=== PATIENT | female | born 1990 | race Caucasian/White ===

== ENCOUNTER 2022-06-23 12:00 | Outpatient (CLI) | payer BC, SELFPAY ==
--- NOTE | 2022-06-23 12:15 | CRLHL7_ITS ---
For Patients: As a result of the Cures Act, medical imaging exams and procedure reports are released immediately into your electronic medical record. You may view this report before your referring provider. If you have questions, please contact your health care provider. INDICATION: Dating and viability. TECHNIQUE: Ultrasound OB pelvis transabdominal and transvaginal. Real-time ceballos-scale imaging of the pelvis was performed. COMPARISON: None. FINDINGS: There is a monochorionic diamniotic twin intrauterine gestation. Fetus A: The embryo demonstrates a regular cardiac rate measuring 168 beats per minute. The embryo`s crown rump length measurement of 2.9 cm corresponds to a gestational age of 9 weeks, 5 days with a sonographic due date of 01/21/2023. There are no gross abnormalities noted within the embryo at this early state of development. Fetus B: The embryo demonstrates a decreased cardiac rate measuring 88 beats per minute. The embryo`s crown rump length measurement of 2.1 cm corresponds to a gestational age of 8 weeks, 5 days with a sonographic due date of 01/28/2023. There is some suggestion of edema with possible pleural effusions. There is small 2.1 centimeter perigestational hemorrhage. The ovaries are of normal size. There are no suspicious fluid collections noted in the cul-de-sac. IMPRESSION: Monochorionic diamniotic twin intrauterine gestation. Fetus A: Live intrauterine gestation with crown-rump length measuring 2.9 centimeters which corresponds to gestational age of 9 weeks, 5 days and sonographic due date of 01/21/2023. Recommend correlation with clinical dates. There are no gross abnormalities noted within the embryo at this early state of development. Fetus B: Live intrauterine gestation with crown-rump length measuring 2.1 centimeters which corresponds to a gestational age of 8 weeks, 5 days with a sonographic due date of 01/28/2023. There is associated bradycardia and nonspecific edematous appearance and possible pleural effusions of fetus B. Recommend continued strap setter follow-up with short-term ultrasound. Ordering Provider and [employer] are aware of results per senior advisory. Dictated by Nelson Miles MD @ 06/23/2022 3:39:58 PM (Electronically Signed)
== END 2022-06-23 12:01 | disposition home or self-care (01) ==
PROVIDERS: Visit Provider Registered Nurse
DX: Z34.90 Encounter for supervision of normal pregnancy, unspecified, unspecified trimester (principal); O30.031 Twin pregnancy, monochorionic/diamniotic, first trimester; Z3A.09 9 weeks gestation of pregnancy
CPT/HCPCS: 76817; 86592; 86703; 86762; 86787; 86803; 86850; 86900; 86901; 87086; 87340; 87491; 87591

== ENCOUNTER 2022-07-07 09:47 | Outpatient (CLI) | payer BC, SELFPAY ==
--- NOTE | 2022-07-07 09:45 | CRLHL7_ITS ---
For Patients: As a result of the Cures Act, medical imaging exams and procedure reports are released immediately into your electronic medical record. You may view this report before your referring provider. If you have questions, please contact your health care provider. INDICATION: Follow-up on twin . Baby B grossly abnormal on prior ultrasound. COMPARISON: OB ultrasound 06/23/2022. TECHNIQUE: Real-time ceballos-scale imaging of the pelvis was performed. FINDINGS: Sonographic imaging demonstrates a twin intrauterine gestation. Fetus A: No heart tones identified. The embryo`s crown-rump length measurement of 4.4 cm corresponds to a gestational age of 11 weeks 1 day with a sonographic due date of 01/25/2023. Yolk sac not visualized. Fetus B: No heart tones identified. The embryo`s crown-rump length measurement of 2.9 cm corresponds to a gestational age of 9 weeks 5 days with a sonographic due date of 02/04/2023. Yolk sac not visualized. IMPRESSION: 1. Twin intrauterine gestation with absence of heart tones for both fetus A and fetus B compatible with demise. 2. Findings discussed with Maggy Vu at 11:57 a.m. on 07/07/2022. Dictated by Inez Hayward MD @ 07/07/2022 11:34:13 AM (Electronically Signed)
== END 2022-07-07 09:48 | disposition home or self-care (01) ==
LOC: US 09:47
PROVIDERS: Visit Provider Registered Nurse
DX: O30.001 Twin pregnancy, unspecified number of placenta and unspecified number of amniotic sacs, first trimester (principal)
CPT/HCPCS: 76816; J2791

== ENCOUNTER 2022-07-08 09:27 | Day surgery (SDC) | payer BC, SELFPAY ==
[2022-07-08] MEDS: DOXYCYCLINE HYCLATE 200 MG in 0.9 % SODIUM CHLORIDE Mini-bag 100 ML 100 MG IVPB (09:18)
[2022-07-08 09:54] LABS: Hemoglobin* 13.7 gm/dL (12.0-16.0)
[2022-07-08 09:59] LABS: Ur HCG Qualitative* POSITIVE (Negative)
[2022-07-08 10:00] VITALS: BP 119/81; PULSE 67; RESP 14; TEMP 37.5; O2SAT 99
[2022-07-08] MEDS: LACTATED RINGERS 1000 ML 1,000 ML 100 ML IV (10:04)
--- NOTE | 2022-07-08 11:45 | PM.GYNPRPL ---
Procedure Pre-op/Post-op diagnoses: Pre-Op/Post-Op Diagnoses Operation Date: 07/08/22 10:55 <No data on this case meets the specified criteria> Procedure: Procedures Operation Date: 07/08/22 10:55 Ultrasound guided suction dilation and curettage Estimated blood loss (mL): 200 Anesthesia type: MAC Complications: none Specimen: uterine contents Narrative: DILATION AND CURRETAGE PREOPERATIVE DIAGNOSIS: 1. Spontaneous missed of monochorionic diamniotic twins at approximately 11 weeks 6 days gestation POSTOPERATIVE DIAGNOSIS: Same PROCEDURE: 1. EUA 2. Ultrasound-guided suction dilation and curettage SURGEON: Maggy Soto MD DATABASE DEVELOPMENT PROJECT MANAGER: None ANESTHESIA: Monitored anesthesia care and paracervical block FINDINGS: 1. A 12 size mobile anteverted/midline/retroverted uterus, no adnexal masses on EUA 2. Normal external genitalia, normal appearing cervix FLUIDS: 800 cc ESTIMATED BLOOD LOSS: 200 cc URINE OUTPUT: 25 cc COMPLICATIONS: None SPECIMEN: 1. Products of conception sent to pathology and for cytogenetic testing as well PREOPERATIVE ANTIBIOTIC: 1. 200 mg of doxycycline IV INDICATIONS: Damaris is a 32 yo G 1 P 0, with diagnosis of spontaneous missed of monochorionic diamniotic twins at approximately 11 weeks 6 days gestation DESCRIPTION OF PROCEDURE: The patient was taken to the operating room where MAC was administered. She was prepared and draped in normal sterile fashion in the dorsal lithotomy position in [facility], taking care to avoid lower extremity hyperextension, hyperflexion or compression. A surgical time-out was performed with the entire operative staff per protocol. Perioperative antibiotics were given. EUA revealed the above findings. Bladder was drained with a red rubber and 25 cc of clear urine was expressed. A speculum was placed in the patient's vagina and a single-tooth tenaculum was placed on the anterior lip of the cervix. The cervix was gently dilated to a 11 [place] diameter to accommodate the 11 suction curettage. The suction curettage was then inserted under direct visualization and ultrasound guided visualization. The uterus was then gently suction curetted and rotated to clear the uterus of products of conception. This was performed until a gritty texture was noted and the uterus was cleared of all remaining products of conception, confirmed by ultrasound in real time. Endometrial strip was 2.9 cm but with any visible products of conception. There was minimal bleeding noted after the suction curettage was removed. 800 mcg of misoprostol was placed rectally. The tenaculum was removed from the anterior lip of the cervix and excellent hemostasis was noted. All instruments were removed. Specimen was sent to pathology. The patient tolerated the procedure well. Sponge, lap and needle counts were correct x 2. The patient was taken to the recovery room in stable condition.
[2022-07-08] MEDS: miSOPROStoL 800 MCG/4 TABLET SUBLINGUAL (12:29)
--- NOTE | 2022-07-08 12:38 | W.ANESCHARGE ---
Anesthesia Charges Start Date/Time Anesthesia Start Date: 07/08/22 Anesthesia Start Time: 11:46 Stop Date/Time Anesthesia Stop Date: 07/08/22 Anesthesia Stop Time: 12:36 Summary Emergency: No
[2022-07-08 12:39] VITALS: BP 111/76; PULSE 72; RESP 14; TEMP 36.6; O2SAT 100
[2022-07-08 12:57] VITALS: BP 116/81; PULSE 60; RESP 14; O2SAT 100
--- NOTE | 2022-07-08 13:02 | W.ANESCHARGE ---
Anesthesia Charges Start Date/Time Anesthesia Start Date: 07/08/22 Anesthesia Start Time: 11:46 Stop Date/Time Anesthesia Stop Date: 07/08/22 Anesthesia Stop Time: 12:36 Summary Emergency: No
[2022-07-08 13:13] VITALS: BP 110/75; PULSE 62; RESP 14; TEMP 37.2; O2SAT 100
== END 2022-07-08 13:25 | disposition home or self-care (01) ==
PROVIDERS: Anesthesiology; Visit Provider Obstetrics & Gynecology
PROC: (CPT 59820; principal; 2022-07-08 10:45)
DX: O02.1 Missed abortion (principal)
CPT/HCPCS: 59820; 00940; 01965; 36415; 76856; 76857; 76998; 81025; 81229; 85018; 88233; 88262; 88305; A9270; J1100; J1885; J2250; J2405; J2704; J3010; J7120

== ENCOUNTER 2023-04-20 12:45 | Outpatient (CLI) | payer BC, SELFPAY ==
--- NOTE | 2023-04-20 13:00 | CRLHL7_ITS ---
For Patients: As a result of the Cures Act, medical imaging exams and procedure reports are released immediately into your electronic medical record. You may view this report before your referring provider. If you have questions, please contact your health care provider. INDICATION: First trimester scan, establish dates. COMPARISON: None. TECHNIQUE: Real-time ceballos-scale imaging of the pelvis was performed. FINDINGS: Sonographic imaging demonstrates a single living intrauterine gestation. The embryo demonstrates a regular cardiac rate measuring 180 beats per minute. The embryo`s crown-rump length measurement of 3.5 cm corresponds to a gestational age of 10 weeks 3 days with a sonographic due date of 11/13/2023. There is a normal-appearing yolk sac. There are no gross abnormalities noted within the embryo at this early state of development. The gestational sac has a normal appearance. There is a thin crescentic perigestational hemorrhage measuring 2.7 x 3.1 x 0.5 cm. The amount of fluid within the sac appears appropriate for gestational age. The cervix is closed. The myometrium appears normal. The ovaries are of normal size. There are no suspicious fluid collections noted in the cul-de-sac. IMPRESSION: Single living intrauterine with sonographic gestational age 10 weeks 3 days and sonographic due date 11/13/2023. Dictated by Raz Branham MD @ 04/21/2023 8:30:21 AM (Electronically Signed)
== END 2023-04-20 12:46 | disposition home or self-care (01) ==
LOC: US 12:47
PROVIDERS: Visit Provider Registered Nurse
DX: Z34.91 Encounter for supervision of normal pregnancy, unspecified, first trimester (principal); Z3A.10 10 weeks gestation of pregnancy
CPT/HCPCS: 76817; 86703; 86706; 86803; 86850; 86900; 86901; 87086; 87340; 87491; 87591

== ENCOUNTER 2023-04-20 14:10 | Outpatient (CLI) | payer BC, SELFPAY ==
[2023-04-20 20:42] LABS: Chlamydia DNA Amplified* NOT DETECTED (No Detected); GC DNA Amplified* NOT DETECTED (No Detected)
== END 2023-04-20 14:11 | disposition home or self-care (01) ==
PROVIDERS: Visit Provider Registered Nurse
DX: Z34.91 Encounter for supervision of normal pregnancy, unspecified, first trimester (principal); Z3A.09 9 weeks gestation of pregnancy
CPT/HCPCS: 86592; 86703; 86704; 86706; 86762; 86787; 86803; 86850; 86900; 86901; 87086; 87340; 87491; 87591

== ENCOUNTER 2023-07-01 08:06 | Outpatient (CLI) | payer OTHER, SELFPAY ==
--- NOTE | 2023-07-01 08:15 | CRLHL7_ITS ---
For Patients: As a result of the Century Cures Act, medical imaging exams and procedure reports are released immediately into your electronic medical record. You may view this report before your referring provider. If you have questions, please contact your health care provider. INDICATION: Evaluate anatomy. COMPARISON: 04/20/2023 TECHNIQUE: Real time ceballos scale imaging of the fetus was performed as well as color Doppler analysis of the umbilical vessels. FINDINGS: Sonographic imaging demonstrates a single living intrauterine gestation. Fetus demonstrates a regular cardiac rate of 145 beats per minute. Fetus has a vertex position. The placenta lies posteriorly without evidence of placenta previa. Edge of the placenta located 7.1 cm from the internal cervical os. Amniotic fluid volume appears normal. Single deepest vertical pocket: 4.2 cm. The cervix is closed and measures 4.5 cm in length. The composite ultrasound gestational age is calculated at 20 weeks 4 days with an estimated sonographic due date of 11/14/2023. The estimated weight is 400 grams which lies at the greater than 97th %. The following biometric measurements were obtained: Biparietal diameter: 4.5 cm/19 weeks 4 days 37th% Head circumference: 18.0 cm/20 weeks 3 days 68th% Abdominal circumference: 16.2 cm/21 weeks 2 days 87th% Femur length: 3.5 cm/21 weeks 1 day 85th% The HC/AC ratio measures: 1.11 range (1.07-1.25) On anatomic survey, there is a normal appearance of the cerebral ventricles, cavum septi pellucidi, cisterna magna and cerebellum. The nose, lips, and facial profile appear normal. The cervical, thoracic and lumbar spine are well visualized and appear normal. There is a normal four-chamber heart view and the left and right ventricular outflow tracts appear normal. The diaphragm and stomach appear normal. The bladder is normal. Bilateral pelviectasis measuring 9 millimeters on the right and 6 millimeters on the left. Three-vessel cord normal. Marginal cord insertion into the placenta located 1.97 cm from the placental edge. The four extremities appear normal. IMPRESSION: Concordance of clinical and sonographic dating. Bilateral renal pelviectasis. Remainder of the anatomic survey normal. Follow-up in the 3rd trimester recommended. Marginal placental cord insertion just less than 2 cm from the placental edge. Dictated by Raz Branham MD @ 07/01/2023 12:41:10 PM (Electronically Signed)
== END 2023-07-01 08:07 | disposition home or self-care (01) ==
LOC: US 08:09
PROVIDERS: Visit Provider Obstetrics & Gynecology
DX: Z34.92 Encounter for supervision of normal pregnancy, unspecified, second trimester (principal); Z3A.20 20 weeks gestation of pregnancy
CPT/HCPCS: 76805

== ENCOUNTER 2023-08-03 08:42 | Outpatient (CLI) | payer OTHER, SELFPAY ==
--- NOTE | 2023-08-03 08:45 | US_ITS ---
Final Report Patient: EVGENY TREVINO Facility:?[facility] Patient ID:?[id number] Site Patient ID:?[id number]. Site :?1990 Study:?US OB Pelvis -08/03/2023 9:25:07 AM Ordering Physician:CEDRICK NEGRETE Final Report: INDICATION: DILATION OF RENAL PELVIS BILATERALLY COMPARISON: 07/01/2023 TECHNIQUE: Real-time ceballos-scale imaging of the pelvis was performed. FINDINGS: position is breech. Cervix is closed measuring 4.6 cm. Placenta is posterior. No previa. Normal amniotic fluid with single deepest pocket measuring 5.8 cm. heart rate 145 beats per minute. Left renal pelvis measures 6.7 millimeters and right renal pelvis measures 5.9 millimeters. IMPRESSION: Persistent dilation of the renal pelvis bilaterally. Dictated by Raz Branham MD @ 08/03/2023 10:44:44 AM (Electronic Signature)
== END 2023-08-03 08:43 | disposition home or self-care (01) ==
LOC: US 08:42
PROVIDERS: Visit Provider Obstetrics & Gynecology
DX: N28.89 Other specified disorders of kidney and ureter (principal)
CPT/HCPCS: 76816

== ENCOUNTER 2023-08-31 09:31 | Outpatient (CLI) | payer OTHER, SELFPAY | END 2023-08-31 09:32 | disposition home or self-care (01) | LOC: NFLDREF 09:32 | PROVIDERS: Visit Provider Obstetrics & Gynecology | DX: Z34.93 Encounter for supervision of normal pregnancy, unspecified, third trimester (principal); Z3A.28 28 weeks gestation of pregnancy | CPT/HCPCS: 86592; 86850; J2791 ==

== ENCOUNTER 2023-09-28 09:11 | Outpatient (CLI) | payer OTHER, SELFPAY ==
--- NOTE | 2023-09-28 09:45 | US_ITS ---
Patient: EVGENY TREVINO Facility:?[facility] Patient ID:?[id number] Site Patient ID:?[id number]. Site :?1990 Study:?US-OB Pelvis OB F/U-09/28/2023 10:11:58 AM Ordering Physician:?Tanika Hughes Final Report: INDICATION: Third trimester scan, evaluate growth. F/U Dilated Renal pelvis. COMPARISON: 08/03/2023 TECHNIQUE: Real time ceballos scale imaging of the fetus was performed. FINDINGS: Sonographic imaging demonstrates a single living intrauterine gestation. Fetus demonstrates a regular cardiac rate of 137 beats per minute. Fetus has a vertex position. The placenta lies posteriorly. Amniotic fluid volume appears normal and there is a single deepest vertical pocket: 4.9 cm. The estimated weight is 2327gm which lies at the 83rd %. On the prior OB ultrasound exam dated 07/01/2023 the estimated weight was at the greater than 97th%. BPD 76th percentile. HC 51st percentile. AC 79th percentile. FL 90th percentile. The HC/AC ratio measures 1.03 range (0.95-1.11). Bilateral pelviectasis measuring 7.2 millimeters on the right and 8.9 millimeters on the left. IMPRESSION: Bilateral pelviectasis. follow-up recommended. Sonographic gestational age 34 weeks 0 days and sonographic due date of 11/09/2023. Sonographic age 10 days ahead of the clinical age. Estimated weight 83rd percentile. Abdominal circumference 79th percentile. Dictated by Raz Branham MD @ 09/28/2023 12:18:00 PM Signed by:?Raz Branham MD @09/28/2023 12:18:00 PM (Electronic Signature)
== END 2023-09-28 09:12 | disposition home or self-care (01) ==
LOC: US 09:11
PROVIDERS: Visit Provider Obstetrics & Gynecology
DX: Z34.93 Encounter for supervision of normal pregnancy, unspecified, third trimester (principal); N28.89 Other specified disorders of kidney and ureter; Z3A.34 34 weeks gestation of pregnancy
CPT/HCPCS: 76816

== ENCOUNTER 2023-10-12 15:15 | Outpatient (CLI) | payer OTHER, SELFPAY | END 2023-10-12 15:16 | disposition home or self-care (01) | LOC: NFLDREF 10-14 10:51 | PROVIDERS: Visit Provider Obstetrics & Gynecology | DX: Z34.83 Encounter for supervision of other normal pregnancy, third trimester (principal) | CPT/HCPCS: 82728 ==

== ENCOUNTER 2023-10-26 13:15 | Outpatient (CLI) | payer OTHER, SELFPAY ==
[2023-10-27 14:14] LABS: Strep B DNA Probe Negative (Negative)
[2023-10-27 14:37] LABS: Strep B Susceptibility Needed? No
== END 2023-10-26 13:16 | disposition home or self-care (01) ==
LOC: NFLDREF 14:10
PROVIDERS: Visit Provider Obstetrics & Gynecology
DX: Z34.93 Encounter for supervision of normal pregnancy, unspecified, third trimester (principal)
CPT/HCPCS: 87081; 87653

== ENCOUNTER 2023-11-26 15:38 | Inpatient (IN) | payer OTHER, SELFPAY ==
[2023-11-26] VITALS (11 sets, daily range): BP systolic 119–143; BP diastolic 71–93; PULSE 69–90; RESP 16–18; TEMP 36.5–36.8; O2SAT 98–99; BMI 33.1
[2023-11-26 17:38] LABS: Basophils Absolute Auto 0.01 K/uL (0.00-0.30); Basophils Percent Auto 0.1 % (0.0-3.0); Eosinophils Absolute Auto 0.12 K/uL (0.00-0.50); Eosinophils Percent Auto 1.3 % (0.0-7.0); Hematocrit 37.2 % (33.0-51.0); Hemoglobin* 11.6 gm/dL (12.0-16.0); Immature Granulocytes Abs Auto 0.07 K/uL (0.00-0.30); Immature Granulocytes Pct Auto 0.7 %; Lymphocytes Absolute Auto 2.08 K/uL (0.90-2.90); Lymphocytes Percent Auto 21.8 % (20-44); Mean Corpuscular HGB Conc 31 gm/dL (32-36); Mean Corpuscular Hemoglobin 27 pg (26-34); Mean Corpuscular Volume 85 fL (80-100); Monocytes Percent Auto 5.6 % (0.0-11.0); Neutrophils Absolute Auto 6.71 K/uL (1.7-7.0); Neutrophils Percent Auto 70.5 % (42.0-72.0); Platelet Count* 223 K/uL (140-440); RDW Coefficient of Variation % 14.7 % (11.5-15.5); Red Blood Count 4.36 m/uL (4.00-5.20); White Blood Count* 9.52 K/uL (4.50-11.00)
[2023-11-26 17:39] LABS: Slide Review Reflex No
--- NOTE | 2023-11-26 17:49 | P.LDBA_ITS ---
Subjective History of Present Illness Date Seen: 11/26/23 Narrative: Patient is being admitted to Labor and Delivery for induction of labor for postdates . She is a 33 year old -0-1-0 woman at 41 weeks, 0 days gestation. Her full history and physical was dictated by Dr. frias on 11/02/2023. Please see this for details. Her blood pressure was mildly elevated upon admission. Repeat again mildly elevated. HELLP labs normal. Specific Issues/Plans G 2 P 0 : Miguel Baby boy: Undecided on name 1. Marginal cord insertion * Growth scan at 32 weeks ordered on 08/31/23 * EFW is 83.4 %tile. AC is 78.5%tile. SDP 4.9 cm 2. Dilated renal pelvis on anatomy scan * Rt = 9 mm, Lt =6mm * Repeat ultrasound in 4 weeks: Rt = 6mm, Lt = 7mm * Repeat 3rd trimester ultrasound (32 wks): Rt = 7mm, Lt = 9 mm * Cell free DNA on 07/01/2023: low risk * Pediatric urology referral place: Peds will place referral after 3. Covid in at time of positive UPT. 4. Miscarriage of twin 07/2022 5. Rh negative: Rhogam administered 08/31/23 Flu: Declined Covid: recent covid infection. Recommend obtaining covid vaccine later in . Given on 07/01/2023 Tdap: 09/14/23 OB - Problem Based A/P Additional Plan (1) Iron deficiency anemia: Status: Acute (2) Asthma: Status: Acute Plan: Avoid Hemabate (3) : Status: Acute Plan: 41 weeks gestation with unfavorable cervix. Reassuring status with category 1 tracing. GBS negative. (4) Gestational hypertension: Status: Acute Plan: Newly, mildly elevated blood pressures since admission. Likely gestational hypertension versus preeclampsia. Urine for protein is still pending, but HELLP labs are normal. We will continue to observe pressures during her intrapartum course, and will start magnesium sulfate for persistent severe range pressures. I will likely start antihypertensives . Plan Cervical ripening with Cook catheter, followed by induction of labor, for indication of postdates . Cook catheter placed in aseptic fashion at 6:15 p.m.. We will begin low-dose Pitocin for cervical ripening at 9:00 p.m.. Cook catheter to stay in place for up to 12 hours. I will reassess her cervical exam in the morning. Delivery/Labor/Induction Plan Induction method: Intracervical balloon catheter OB Exam Physical Exam Vital signs: Temp Pulse Resp BP Pulse Ox 98.2 F 86 18 134/81 98 11/26/23 15:54 11/26/23 16:32 11/26/23 15:54 11/26/23 16:32 11/26/23 16:02 Narrative: Physical exam: General: No acute distress Psych: Alert and oriented x3, full affect HEENT: Normocephalic, atraumatic Neck: No cervical adenopathy, no thyromegaly Heart: Regular rate and rhythm, no murmur rub or gallop Lungs: Clear to auscultation bilaterally Abdomen: Soft, nontender, gravid, cephalic lie Lower extremities: Trace edema, no erythema Pelvic exam: Cervix 1 cm, 50%,-3, anterior, moderate consistency Cook catheter placed in aseptic fashion tracing: Baseline 135, accelerations to 150s, no decelerations, moderate variability. No regular contractions.
[2023-11-26 18:01] LABS: Alanine Aminotransferase* 18 U/L (4-35); Aspartate Amino Transferase* 24 U/L (12-35); Blood Urea Nitrogen* 9 mg/dL (5-24); Creatinine* 0.5 mg/dL (0.5-1.5); Est. Creatinine Clearance* 159.93; Estimated Glomerular Filt Rate 126 ml/min
[2023-11-26 18:28] LABS: Total Protein Urine 12 mg/dL
[2023-11-26 18:29] LABS: Creatinine Urine 27.4 mg/dL; Protein Creatinine Ratio Urine 0.44 (0-0.19)
[2023-11-26] MEDS: OXYTOCIN 30 unit/500 ML in NS 30 UNIT/500 ML BAG IVPB (21:48)
[2023-11-26] MEDS: LACTATED RINGERS 1000 ML 1,000 ML 125 ML IV (21:48)
[2023-11-26] MEDS: MORPHINE 10 MG/ML inj IM (21:53)
[2023-11-26] MEDS: hydrOXYzine pamoate 25 MG CAPSULE 100 MG PO (21:54)
[2023-11-27] VITALS (81 sets, daily range): BP systolic 93–150; BP diastolic 51–89; PULSE 66–112; RESP 16–20; TEMP 36.5–38.8; O2SAT 95–100
[2023-11-27] MEDS: LACTATED RINGERS 1000 ML 1,000 ML 125 ML IV ×2 (05:28→20:54)
--- NOTE | 2023-11-27 08:01 | P.OBPN_ITS ---
Subjective Date Seen: 11/27/23 Narrative: Damaris is a 33-year-old D7G3-1-4-0 woman at 41 weeks, 1 day gestation here for postdates induction of labor. She was diagnosed with preeclampsia without severe features upon admission. She is known to have marginal cord insertion. She had Cook catheter with low-dose Pitocin overnight for cervical ripening. She was able to sleep some last night. She is feeling mild tightening in her lower abdomen. Objective Exam: gen - nad Cervical exam: 4 cm, 80%, -2, anterior, soft AROM for scant clear fluid Vital Signs: Last Vital Signs Temp 98.1 F 11/27/23 00:01 Pulse 83 11/27/23 07:01 Resp 16 11/27/23 06:10 BP 132/74 11/27/23 07:01 Pulse Ox 98 11/26/23 16:02 Highest blood pressure in the last 12 hours is 150/89 Comments: tracing: In the last hour, baseline 130, accelerations present, 1 brief variable deceleration at 7:47 a.m., moderate variability. Contractions every 2- 3 minutes. Contractions Monitor mode: External Pitocin Rate (mU/min): 11 Assessment Assessment: early labor Amniotic Membrane Status: AROM Status: Category l Tracing Comments: Category 1 tracing in the last 1/2 hour Labor Progress: Progressing well through latent labor Maternal Status: Preeclampsia without severe features, with continuing mild elevation of blood pressures Plan Plan: AROM performed as noted above Continue Pitocin augmentation Epidural as desired
[2023-11-27] MEDS: ROPIVACAINE 0.2% 100 ml 100 ML 12 MG EPIDURAL (11:12)
[2023-11-27] MEDS: LIDOCAINE 2% (PF) 5 ML VIAL EPIDURAL (11:13)
[2023-11-27] MEDS: ROPIVACAINE 0.2 % PF 10 ML INJ 20 MG EPIDURAL (11:13)
--- NOTE | 2023-11-27 11:15 | P.ANBPRC_ITS ---
[facility] Medical History Missed ?O02.1 - Missed (ICD-10) Twin gestation in first trimester ?O30.001 - Twin , unspecified number of placenta and unspecified number of amniotic sacs, first trimester (ICD-10) Surgical History H/O wisdom tooth extraction ?K08.409 - Partial loss of teeth, unspecified cause, unspecified class (ICD- 10) Family History Family/Other Colon cancer Social History What is your current living situation?: I presently have a place to live Problems where you live: no known problems In the past 12 months, utilities in danger of being shut off: no In past 12 months, lack of transportation kept you from medical appts, meetings, work, or getting things needed for daily living: no In the past 12 mos, have been you worried that your food would run out before you had money to buy more?: never true In the past 12 mos, the food you bought just didn't last and you didn't have money to buy more?: never true Smoking Status: Never smoker How often does anyone, including family, friends and others, physically hurt you : never How often does anyone, including family, friends and others, insult or talk down to you: never How often does anyone, including family, friends and others, threaten you with harm: never How often does anyone, including family, friends and others, scream or curse at you: never Little interest or pleasure in doing things: not at all Feeling down, depressed, or hopeless: not at all Meds Home Medications and Allergies Home Medications ?Medication ?Instructions ?Recorded ?Confirmed ?Type albuterol sulfate 90 mcg/actuation 2 puff inhalation Q6H PRN 06/23/22 11/26/23 History aerosol inhaler prenat.vits,lv,fse-usfv-howyy 1 tab PO QDAY 06/23/22 11/26/23 History aspirin 81 mg chewable tablet 81 mg PO QDAY 05/18/23 11/26/23 History doxylamine succinate 25 mg tablet 12.5 mg PO QHS PRN 09/14/23 11/26/23 History (Unisom (doxylamine)) calcium carbonate (Tums) 200 mg PO QID 11/23/23 11/26/23 History Allergies Allergy/AdvReac Type Severity Reaction Status Date / Time No Known Drug Allergies Allergy Verified 11/26/23 16:02 Results Labs Labs: Laboratory Results - last 24 hr 11/26/23 11/26/23 17:12 17:37 WBC 9.52 RBC 4.36 Hgb 11.6 L Hct 37.2 MCV 85 MCH 27 MCHC 31 L RDW Coeff of Thomas 14.7 Plt Count 223 Neut % (Auto) 70.5 Lymph % (Auto) 21.8 [place] % (Auto) 5.6 Eos % (Auto) 1.3 Baso % (Auto) 0.1 Neut # (Auto) 6.71 Lymph # (Auto) 2.08 [place] # (Auto) 0.50 Eos # (Auto) 0.12 Baso # (Auto) 0.01 Abs Immat Gran (auto) 0.07 Imm/Tot Granulo (auto) 0.7 BUN 9 Creatinine 0.5 Estimated Creat Clear 159.93 Estimated GFR 126 AST 24 ALT 18 Urine Creatinine 27.4 Protein/Creatinin Ratio 0.44 H Urine Total Protein 12 Blood Type A Negative Antibody Screen NEGATIVE Vital Signs Vital Signs: Last Vital Signs Temp 98.9 F 11/27/23 10:11 Pulse 98 11/27/23 11:14 Resp 18 11/27/23 10:11 BP 129/80 11/27/23 11:14 Pulse Ox 98 11/27/23 11:11 Weight: 99.8 kg Height: 172.72 cm Anesthesia Procedures Epidural Insertion Patient Location: OB Start Time: 10:30 Stop Time: 11:15 Start Date: 11/27/23 Stop Date: 11/27/23 Reason for Block: procedure for pain Patient Position: sitting Performed By: Kel Monet Preanesthetic Checklist: IV checked, risks and benefits discussed, surgical consent, monitors and equipment checked, pre-op evaluation, timeout performed and anesthesia consent Prep: chlorhexidine gluconate Monitoring: blood pressure monitoring, continuous pulse oximetry and heart rate Approach: midline Vertebral Space: lumbar (1-5) Epidural Technique: CARRIE air Needle Type: Tuohy needle Injection Technique: continuous catheter Needle gauge: 17 Needle Length (cm): 10 cm Needle Insertion Depth (cm): 7 Catheter Gauge: 19 Catheter Type: multi-orifice Catheter at skin depth (cm): 13 Test Dose Result: negative and lidocaine 1.5% with epinephrine 1 to 200,000
[2023-11-27] MEDS: LACTATED RINGERS 1000 ML 1,000 ML 425 ML IV (11:16)
[2023-11-27] MEDS: PHENYLEPHRINE 100 MCG/ML SYRINGE IVP ×2 (11:26→11:37)
[2023-11-27] MEDS: LACTATED RINGERS 1000 ML 1,000 ML 1025 ML IV (16:23)
[2023-11-27] MEDS: AMPICILLIN 2 GM in 0.9 % SODIUM CHLORIDE Mini-bag 100 ML IVPB ×2 (16:46→23:35)
[2023-11-27] MEDS: ACETAMINOPHEN 500 MG TABLET 1000 MG PO (17:09)
[2023-11-27] MEDS: GENTAMICIN 400 MG in 0.9 % SODIUM CHLORIDE 100 ml 100 ML 110 MG IVPB (17:26)
--- NOTE | 2023-11-27 18:21 | P.OBPN_ITS ---
Subjective Date Seen: 11/27/23 Narrative: Damaris is a 33-year-old O1X9-5-1-3 woman at 41 weeks, 1 day gestation here for postdates induction of labor. She was diagnosed with preeclampsia without severe features upon admission. She is known to have marginal cord insertion. She had Cook catheter with low-dose Pitocin overnight for cervical ripening. She had artificial rupture membranes this morning at 8:45 a.m.. She has been on Pitocin augmentation throughout the day. At around 4:30 p.m., she had a 2nd el evation of temperature, along with elevated heart rate baseline. She was diagnosed with chorioamnionitis based on these findings, and started on ampicillin and gentamicin. heart rate baseline has decreased to 160, but it is continuing to show minimal variability. She has had an epidural since my last note, but feels some vaginal discomfort on occasion, no upper abdominal pain. Objective Exam: gen - nad Cervical exam: Last exam per RN was 5, 80,-2 station at 4:09 p.m. Vital Signs: Last Vital Signs Temp 101.7 F H 11/27/23 17:15 Pulse 110 H 11/27/23 18:17 Resp 18 11/27/23 17:15 BP 111/57 L 11/27/23 18:17 Pulse Ox 98 11/27/23 11:21 Comments: tracing: In the last hour, baseline 130, accelerations present, 1 brief variable deceleration at 7:47 a.m., moderate variability. Contractions every 2- 3 minutes. Contractions Monitor mode: External Pitocin Rate (mU/min): 11 Assessment Assessment: early labor Amniotic Membrane Status: AROM Status: Category l Tracing Comments: Category 2 tracing, minimal variability, nonreassuring status in the setting of chorioamnionitis, currently on ampicillin and gentamicin Labor Progress: Still latent labor Maternal Status: Preeclampsia without severe features, with stable blood pressures at this time Plan Plan: for nonreassuring status We discussed risks of procedure, including bleeding, hemorrhage, blood transfusion, infection, abdominal scarring, thromboembolism. Consent form reviewed with and signed by patient.
[2023-11-27] MEDS: AZITHROMYCIN 500 MG in 0.9 % SODIUM CHLORIDE 250 ml 250 ML 255 MG IVPB (18:25)
[2023-11-27 18:43] LABS: Hematocrit 32.9 % (33.0-51.0); Hemoglobin* 10.8 gm/dL (12.0-16.0); Mean Corpuscular HGB Conc 33 gm/dL (32-36); Mean Corpuscular Hemoglobin 28 pg (26-34); Mean Corpuscular Volume 84 fL (80-100); Platelet Count* 212 K/uL (140-440); Red Blood Count 3.91 m/uL (4.00-5.20); White Blood Count* 21.25 K/uL (4.50-11.00)
[2023-11-27 18:53] LABS: Slide Review Reflex No
[2023-11-27 18:59] LABS: Alanine Aminotransferase* 20 U/L (4-35); Aspartate Amino Transferase* 28 U/L (12-35); Blood Urea Nitrogen* 7 mg/dL (5-24); Creatinine* 0.5 mg/dL (0.5-1.5); Est. Creatinine Clearance* 159.93; Estimated Glomerular Filt Rate 126 ml/min
--- NOTE | 2023-11-27 20:15 | P.ANES_ITS ---
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
--- NOTE | 2023-11-27 20:20 | W.PM.NB ---
Nerve Block Nerve Block Time Seen by Provider: 20:03 Date Seen: 11/27/23 Type of block requested by surgeon for post-operative analgesia: TAP Side: bilateral Time out performed: Yes Verification of patient name: Yes Verification of date of : Yes Site marking: site marked Name of person performing procedure: mantyl Continuous monitoring Was continuous monitoring of O2 sat, B/P, cardiac exercise physiologist, recorded every 15 minutes?: Yes Procedure Checklist: sterile prep, needles and gloves Ultrasound guided. Images saved: Yes Medications given in 5ml increments after negative aspiration: Marcaine %: 0.25 mL: 30 and Exparel mL: 10 Block Charges Block Charge (with Pro Fee): TAP Bilateral Use of Ultrasound Machine for Block: Yes- US Guidance/pain block
--- NOTE | 2023-11-27 20:53 | P.OBPRC_ITS ---
Procedure Date of procedure: 11/27/23 Procedure Done: Global Will [facility] bill your pro fee for this procedure?: Yes Procedure Description: PREOPERATIVE DIAGNOSIS: 41 weeks, 1 day gestation Nonreassuring status remote from delivery Chorioamnionitis POSTOPERATIVE DIAGNOSIS: 41 weeks, 1 day gestation Nonreassuring status remote from delivery Chorioamnionitis PROCEDURE: Primary low-transverse section SURGEON: Rosa Turner MD ANESTHESIA: Epidural IV FLUIDS: 1000 mL crystalloid QBL: 524 mL FINDINGS: 1. Male infant, cephalic 0P presentation, Apgars of 8 and 9, weight 10 lb, 4 oz 2. Normal appearance to uterus, bilateral tubes and ovaries. COMPLICATIONS: None PROCEDURE IN DETAIL: Patient was taken to the operating room with IV running. She received ampicillin and gentamicin just prior to incision for treatment of chorioamnionitis, and clindamycin was given thereafter. Epidural anesthesia had previously been administered. Swain catheter was inserted. She was prepped and draped in the usual sterile fashion. Anesthesia was tested and found to be adequate. A low-transverse skin incision was made with a scalpel and carried through to the underlying layer of fascia with the scalpel. The subcutaneous fat was dissected off the underlying fascia with Bovie. The fascia was nicked in the midline with a scalpel, and this incision was extended laterally with scissors. The rectus muscles were in the midline. Peritoneum was identified and entered bluntly. Bovie was used to widen this opening laterally. Tolu O retractor was inserted and tightened down, providing excellent visualization of the lower uterine segment. The bladder reflection was found to be well below the planned site for hysterotomy. Low-transverse uterine incision was made with a scalpel. Incision was widened bluntly. The infant's head was grasped through the hysterotomy. When I was unable to deliver the head with fundal pressure, the Tolu retractor was 1st removed, and then this skin incision was extended. This allowed the head to be delivered with the help of fundal pressure. The remainder of the body delivered without incident. Cord was clamped and cut after 30 seconds. Infant was handed off to attending nurses. Cord gases and cord blood was collected. The placenta was delivered with gentle traction on the cord. The uterus was exteriorized and cleaned of all clots and debris with the dry lap pad. The hysterotomy was reapproximated with 0 Vicryl in a running, locked fashion. Second layer of the same suture was used in imbricating fashion to obtain hemostasis. The adnexa were examined and noted to be normal in appearance. The cul-de-sac and gutters were cleansed with dampened laparotomy sponge, removing any further clots and debris. The uterus was returned to the abdomen. The hysterotomy was reexamined and found to be hemostatic. The peritoneum was reapproximated with 2 0 Vicryl in a running fashion. The rectus muscles were examined and found to be hemostatic. The fascia was reapproximated with 0 Vicryl in a running fashion. Subcutaneous fat was irrigated and Bovie used on oozing vessels. The subcutaneous fat was reapproximated with 2 0 plain gut suture in an interrupted fashion. The skin was closed with a subcuticular stitch of 4-0 Monocryl. Steri-Strips were applied above this, followed by silver impregnated dressing. Patient tolerated procedure well was taken to recovery area in stable condition. Surgery Debrief Performed: Yes Surgery Debrief Comment: Verbally confirmed by request to send cord gases, cord blood, placental culture, and placental pathology [place] total score - 1 minute: 8 total score - 5 minute: 9
[2023-11-27] MEDS: CLINDAMYCIN 900 MG/50 ML-D5W 900 MG/50 ML PIGGYBACK 100 MG IVPB (21:41)
[2023-11-28] VITALS (17 sets, daily range): BP systolic 99–139; BP diastolic 65–86; PULSE 72–85; RESP 14–18; TEMP 36.4–36.9; O2SAT 96–100
[2023-11-28] MEDS: KETOROLAC 30 MG/ML inj IVP ×4 (01:45→20:30)
[2023-11-28] MEDS: AMPICILLIN 2 GM in 0.9 % SODIUM CHLORIDE Mini-bag 100 ML IVPB ×2 (05:25→10:53)
[2023-11-28] MEDS: CLINDAMYCIN 900 MG/50 ML-D5W 900 MG/50 ML PIGGYBACK 100 MG IVPB ×2 (06:16→15:39)
[2023-11-28 06:34] LABS: Basophils Percent Auto 0.1 % (0.0-3.0); Hematocrit 30.2 % (33.0-51.0); Hemoglobin* 9.7 gm/dL (12.0-16.0); Immature Granulocytes Pct Auto 0.3 %; Lymphocytes Percent Auto 7.7 % (20-44); Mean Corpuscular HGB Conc 32 gm/dL (32-36); Mean Corpuscular Hemoglobin 27 pg (26-34); Mean Corpuscular Volume 85 fL (80-100); Monocytes Percent Auto 3.9 % (0.0-11.0); Platelet Count* 201 K/uL (140-440); RDW Coefficient of Variation % 15.2 % (11.5-15.5); Red Blood Count 3.55 m/uL (4.00-5.20); White Blood Count* 22.15 K/uL (4.50-11.00)
[2023-11-28 06:37] LABS: Slide Review Reflex No
[2023-11-28 06:55] LABS: Creatinine* 0.6 mg/dL (0.5-1.5); Est. Creatinine Clearance* 133.27; Estimated Glomerular Filt Rate 121 ml/min
[2023-11-28 06:56] LABS: Alanine Aminotransferase* 18 U/L (4-35); Aspartate Amino Transferase* 24 U/L (12-35); Blood Urea Nitrogen* 7 mg/dL (5-24)
--- NOTE | 2023-11-28 08:21 | PM.OBPNVD1 ---
OB - PN:Subj Subjective Time Seen by Provider: 08:21 Date Seen: 11/28/23 Narrative: Overnight patient had no complaints. Her pain is well controlled on oral pain medications, although she has not been up moving much. She is tolerating a regular diet. She has passed flatus. She is not yet ambulating without difficulty. Lochia is scant. She is urinating with dhillon. Will remove dhillon cath later on this AM. Patient denies chest pain, SOB, n/v, headache, RUQ pain, vision changes, dizziness. OB - PN: Obj Exam Physical Exam: Vital signs: Temp Pulse Resp BP Pulse Ox 97.9 F 79 18 99/65 97 11/28/23 03:00 11/28/23 03:00 11/28/23 03:00 11/28/23 03:00 11/28/23 03:00 Narrative: Physical exam: General: No acute distress Psych: Alert and oriented x4, full affect HEENT: Normocephalic, atraumatic Neck: No cervical adenopathy, no thyromegaly Heart: Regular rate and rhythm, no murmur rub or gallop Lungs: Clear to auscultation bilaterally Abdomen: Normoactive bowel sounds, soft, no tenderness, rebound, or guarding. Incision: Appropriately tender to palpation. Dressing clean, dry, and intact. Skin: No lesions or rashes Lower extremities: No edema or erythema. SCDs in place. Pelvic exam: Scant bleeding on pad OB - PN: Obj Data Labs Labs: Laboratory Results - last 24 hr 11/27/23 11/28/23 18:29 Unknown WBC 21.25 H 22.15 H RBC 3.91 L 3.55 L Hgb 10.8 L 9.7 L Hct 32.9 L 30.2 L MCV 84 85 MCH 28 27 MCHC 33 32 RDW Coeff of Thomas 15.2 Plt Count 212 201 Neut % (Auto) 88.0 H Lymph % (Auto) 7.7 L Cooper % (Auto) 3.9 Eos % (Auto) 0.0 Baso % (Auto) 0.1 Neut # (Auto) 19.50 H Lymph # (Auto) 1.70 Cooper # (Auto) 0.90 Eos # (Auto) 0.00 Baso # (Auto) 0.00 Abs Immat Gran (auto) 0.10 Imm/Tot Granulo (auto) 0.3 BUN 7 7 Creatinine 0.5 0.6 Estimated Creat Clear 159.93 133.27 Estimated GFR 126 121 AST 28 24 ALT 20 18 OB - PN: A/P Delivery Assessment and Plan (1) Asthma: Status: Acute (2) Preeclampsia: Status: Acute (3) Acute blood loss anemia: Status: Acute (4) Chorioamnionitis: Status: Acute (5) Dilated renal pelvis: Status: Acute Plan Postoperative/post delivery Review: - Admitted for: medical IOL at 41 weeks - Surgical procedure: Primary delivery for nonreassuring heart status remote from delivery. Chorioamnionitis - Skin incision: Pfannenstiel - Closure: Sutures - Estimated blood loss: 524 mL - Intraoperative Complications: None Chorioamnionitis - Last fever on 11/26 @ 1815 - Currently on triple antibiotics (amp/gent/clinda). - Will keep on abx until 24 hours afebrile. Pre-Eclampsia without severe features - Based on mild range in blood pressures and a protein/ creatinine ratio of 0.44 - BP : 100s to 120s/60 - 70s - Symptoms: Asymptomatic - Magnesium: Currently not indicated - IV antihypertensives: Currently not indicated - PO antihypertensive: Currently not indicated - Pre-eclampsia labs on 11/28/2023: Hgb 9.7 Plt 201 Cr 0.6 ALT 24 AST 18 Acute blood loss anemia - Urine output: Adequate - Preop/pre delivery Hgb/plt: 11.6/223 - Postop/post delivery Hgb/plt: 9.7/201 - PO iron every other day ordered. Postoperative care: - Diet: Advance as tolerated - Fluid: Encourage oral intake - Activity: Encourage ambulation and incentive spirometry - Pain: Acetaminophen, Ibuprofen, and oxycodone - DVT prophylaxis: SCDs and TEDs when not ambulating. Discharge Planning - Follow up in 5-7 days for incision check and BP check in clinic - Follow Up: follow-up at 2 weeks and 6 weeks in clinic Baby's Status - Fetus: 8, 9 - 4640 g, male - Location: Bedside Dispo: Patient is POD#1. Need the following milestones: off IV antibiotics, ambulation, and dhillon removed. Anticipate discharge POD#3.
[2023-11-28] MEDS: DOCUSATE SODIUM 100 MG CAPSULE PO (08:26)
--- NOTE | 2023-11-28 10:14 | PM.ANPOST ---
Post Anesthesia Note Post Anesthesia Note Patient seen: Inpatient Respiratory Status: adequate Cardiovascular Status: adequate Mental Status: baseline Pain: adequate Temp: baseline Anesthetic awareness: N/A Complications: none Follow care: none
[2023-11-28] MEDS: ACETAMINOPHEN 500 MG TABLET 1000 MG PO ×3 (10:26→23:10)
[2023-11-28] MEDS: LACTATED RINGERS 1000 ML 1,000 ML 125 ML IV (17:05)
[2023-11-28] MEDS: GENTAMICIN 400 MG in 0.9 % SODIUM CHLORIDE 100 ml 100 ML 110 MG IVPB (17:10)
[2023-11-29] VITALS (8 sets, daily range): BP systolic 116–142; BP diastolic 73–88; PULSE 63–78; RESP 16; TEMP 36.5–36.7; O2SAT 97–99
[2023-11-29] MEDS: KETOROLAC 30 MG/ML inj IVP (05:57)
[2023-11-29] MEDS: DOCUSATE SODIUM 100 MG CAPSULE PO (08:42)
[2023-11-29] MEDS: IBUPROFEN 600 MG TABLET PO ×3 (08:43→23:23)
--- NOTE | 2023-11-29 09:05 | PM.OBPNVD1 ---
OB - PN:Subj Subjective Date Seen: 11/29/23 Narrative: Damaris is a 33 y.o. who was admitted to [facility] for induction of labor for postdates .? She had an uncomplicated primary .? ? The patient feels well.? The pain is well controlled with current medications.? She has no new complaints.? She is breast feeding/ pumping and reports things are going well.? the patient has done well.? Vitals have been stable.? She has remained afebrile.? Has a good appetite, is tolerating a general diet.? She is voiding without difficulty.? She is passing gas and has not had a bowel movement.? She is ambulating and denies any dizziness.? Has Small amount of rubra lochia.? OB - PN: Obj Exam Physical Exam: Vital signs: Temp Pulse Resp BP Pulse Ox O2 Del Method 98.0 F 76 16 116/76 97 Room Air 11/29/23 06:02 11/29/23 03:30 11/29/23 03:30 11/29/23 03:30 11/29/23 03:30 11/29/23 03:30 Narrative: GENERAL APPEARANCE:? normal affect, alert, no distress MOOD:? appropriate CHEST:? clear to auscultation HEART:? regular rate and rhythm ABDOMEN:? soft, non-tender the uterine fundus is At Umbilicus, Midline and is appropriate for the stage of recovery. EXTREMITIES:? normal and 1+ edema Incision: Healing well, no surrounding erythema, abnormal induration or discharge Urinary Catheter Management: Urethral: Cath placed during this visit: yes, but has since been removed by the nurse Reason for continuing: decision to DC catheter Removal date: 11/28/23 Removal time: 11:00 OB - PN: A/P Delivery Assessment and Plan (1) care following delivery: Status: Acute (2) Asthma: Status: Acute (3) Preeclampsia: Status: Acute (4) Acute blood loss anemia: Status: Acute (5) Chorioamnionitis: Status: Acute (6) Dilated renal pelvis: Status: Acute (7) Lactating mother: Status: Acute Plan day: 2 Plan: routine care Comments: Assessment/Plan?G 2 P 1 status post uncomplicated primary .? ?? 1.? Continue route PP cares? 2.? .? May see if desired? 3.? Anticipate discharge home tomorrow ? 4.? Acute anemia.? Iron supplement ordered 5. S/P chorioamnionitis treatment, afebrile?
[2023-11-29] MEDS: ACETAMINOPHEN 500 MG TABLET 1000 MG PO ×2 (10:50→19:07)
[2023-11-29 18:34] LABS: Rapid Plasma Reagin (RPR) Non Reactive (Non Reactive)
--- NOTE | 2023-11-29 20:03 | SUR.ANES ---
Called to assess patient's neck pain and headache post Csection. Patient states pain hasn't been bad when up and about as long as pain meds are on board. Sitting up in bed at 45degrees. Lights don't seem to bother her. No documented wet tap during YUE placement and epidural was used for C section. Encouraged her to drink lots of fluids, drink caffeine - at which time she said she is a coffee drinker and likes caffeine. Told her we would check on her tomorrow again. I double checked with INVOICE CLERK who placed YUE to make sure there was no suspicion of wet tap. Lucio PAREKH
[2023-11-29] MEDS: CYCLOBENZAPRINE HCL 10 MG TABLET PO (21:30)
[2023-11-29] MEDS: OXYCODONE 5 MG TABLET PO (23:27)
[2023-11-30 04:15] VITALS: BP 123/76; PULSE 67; RESP 16; TEMP 36.6; O2SAT 97
[2023-11-30] MEDS: ACETAMINOPHEN 500 MG TABLET 1000 MG PO ×2 (04:28→11:01)
[2023-11-30] MEDS: OXYCODONE 5 MG TABLET PO (04:29)
[2023-11-30] MEDS: IBUPROFEN 600 MG TABLET PO ×2 (06:13→12:46)
[2023-11-30] MEDS: FERROUS SULFATE 325 MG TABLET 650 MG PO (09:40)
[2023-11-30] MEDS: DOCUSATE SODIUM 100 MG CAPSULE PO (10:39)
--- NOTE | 2023-11-30 10:39 | PM.OBDSVD1 ---
DS: Providers Provider Date Seen: 11/30/23 Date of admission: 11/26/23 15:38 Primary care physician: Not a Local Provider Admitting Clinician: Rosa Turner MD Attending Physician on discharge: Rosa Turner MD Date of Discharge: 11/30/23 DS: Diagnosis Discharge Diagnosis (1) Lactating mother: Status: Acute (2) care following delivery: Status: Acute (3) Acute blood loss anemia: Status: Acute (4) Preeclampsia: Status: Acute Exam Narrative: Exam Narrative: GENERAL APPEARANCE:? normal affect, alert, no distress? MOOD:? appropriate? CHEST:? clear to auscultation and percussion? HEART:? regular rate and rhythm? ABDOMEN:? soft, non-tender the uterine fundus is U/3 and is appropriate for the stage of recovery. Incision dressing is clean dry and intact.? EXTREMITIES:? normal and no edema? Const: Vital Signs, click to edit/add: Vital Signs - 24 hr 11/29/23 12:19 11/29/23 15:30 11/29/23 20:37 Temperature 97.8 F 98.1 F 98.0 F Pulse Rate [Right Pulse Oximeter] 78 75 63 Respiratory Rate 16 16 16 Blood Pressure [Ri ght Arm] 119/79 119/73 142/88 H Pulse Oximetry 98 97 99 Oxygen Delivery Me thod Room Air Room Air Room Air 11/29/23 20:55 11/30/23 04:15 Temperature 97.8 F Pulse Rate [Right Pulse Oximeter] 67 Respiratory Rate 16 Blood Pressure [Ri ght Arm] 126/82 123/76 Pulse Oximetry 97 Oxygen Delivery Me thod Room Air Documenting provider has reviewed patient's vital signs: yes OB - DS: Summary Hospital Course Hospital Course: Damaris is a 33 year old G 2 P 1 at 41.1 weeks gestation that was admitted to the Center on 11/26/23 for IOL for postdates. She had a delivery complicated by preeclampsia diagnosed on admission and chorioamnionitis. She delivered a viable male . She is breast feeding and denies concerns with how it is going. the patient has done well. Her pain is well controlled with current medications.? She has no new complaints.? Urinary output is adequate and she is voiding without difficulty.? Has a good appetite, is tolerating a general diet, is passing flatus, and has not had a bowel movement.? Has scant amount of rubra lochia.? She is ambulating well. She will be seen Tuesday for an incision and blood pressure check and to have her dressing removed. She will be sent home with a blood pressure cuff and instructed on its use before discharge. She received an abdominal binder for use at home. She does likely have a spinal headache. It improves with positional changes and is managed with Tylenol and caffeine. She was offered a blood patch but declines. She is aware to be seen if the pain increases or is not continuing to improve. She will be sent home with a prescription for PO iron for PP anemia. Peripartum Data Infant delivery method: Primary C/S; Labored Procedures: Procedures Operation Date: 11/27/23 19:15 Actual Procedure Side Surgeon p Section Rosa Turner MD complications: spinal headache and other (chorioamnionitis ) Gender: Male Infant Discharge Plan: Home Status at Discharge Functional status at discharge: independent ambulation Overall status at discharge: patient is progressing back to baseline Time Spent with Patient Time attestation: Total time spent providing and/or coordinating discharge services: Discharge Plan Discharge Disposition: Home, Self-Care Date of Admission: 11/26/23 15:38 Primary Care Provider: Provider,Not a Local Condition: Stable Anticipated Discharge Date/Time: 11/30/23 12:00 Discharge Medications: New docusate sodium 100 mg Capsule 100 mg PO DAILY Qty: 90 0RF Rx Instructions: Take 1-2t ablets daily as needed for constipation. ibuprofen 600 mg Tablet 600 mg PO Q6H PRN (Reason: Pain) Qty: 90 0RF oxycodone 5 mg Tablet 5 - 10 mg PO Q4H PRN (Reason: Pain) Qty: 14 0RF Continued albuterol sulfate 90 mcg/actuation HFA aerosol inhaler 2 puff inhalation Q6H PRN prenat.vits,lv,[id number] Tablet 1 tab PO QDAY Unisom (doxylamine) 25 mg tablet 12.5 mg PO QHS PRN calcium carbonate [Tums] 200 mg calcium (500 mg) tablet,chewable 200 mg PO QID ferrous sulfate 325 mg (65 mg iron) tablet,delayed release (DR/EC) 325 mg PO QMWF 60 Days Qty: 26 0RF Discontinued aspirin 81 mg tablet,chewable 81 mg PO QDAY Discharge Orders: Discharge Order (Routine); Ordered 11/30/23 Ordered By: Josi Mac Patient Education: OB /Breast Feeding Additional Instructions: Discharge instructions were reviewed with the patient including signs and symptoms of infection and home going medications. Blood pressure cuff to be sent home with patient. Instructions provided and she is to check blood pressures at home twice a day. ?? Activity restrictions:? Lifting Restrictions: 20 pounds for 6 weeks? No high-impact or core exercises for 6 weeks.?? No not submerge incision under water X 2 weeks?? Nothing vaginally for 6 weeks: no tampons or intercourse? Do not drive while taking narcotic pain medication(s)? Off Work or School for 8 weeks? ?? Symptoms to report to doctor:? -Bleeding that saturates more than one pad per hour? -Passing clots larger than the size of a golf ball? -Pain not relieved by prescribed medication? -Fever above 100.4 degrees Fahrenheit? -A foul vaginal odor? -Difficulty in emotions, mood and functions? -Thoughts of hurting yourself and/or ? -Painful, reddened area in your breast? -Any drainage, redness or tenderness in your IV/epidural site? -Severe headache that doesn't improve after taking medications? -Changes in vision, including temporary loss of vision, blurred vision, and/or light sensitivity? -Upper abdominal pain (usually under ribs on the right side)? -Decrease in urination or painful, frequent urinating? -Chest pain? -Shortness of breath? -Tenderness or pain with redness and/swelling in the calf(s) of your leg? Follow up visits:?? 1. visit on Tuesday12/02/23:?removed incision dressing, incision and blood pressure check. 2. 2-week visit: discuss infant feeding/care concerns, review control options and screen for anxiety/depression.? 3. 6-week visit for an annual exam.? ?? consultation services are available to all mothers and babies for the first year after delivery.? To make an appointment, please call [phone].? Discharge Diet: Regular Follow Up Appointments: [facility] [Provider Group] Provider,Not a Local [Primary Care Provider] - Forms: [employer] Info Instructions
[2023-11-30 10:41] VITALS: BP 141/91; PULSE 97; RESP 14; TEMP 36.8; O2SAT 97
[2023-11-30 10:55] VITALS: BP 135/84
[2023-11-30 14:30] VITALS: BP 142/85; PULSE 70; RESP 16; TEMP 36.6; O2SAT 97
[2023-11-30 14:45] VITALS: BP 131/84
== END 2023-11-30 15:34 | disposition home or self-care (01) | DRG 786 ==
PROVIDERS: Admitting Provider Obstetrics & Gynecology; Visit Provider Obstetrics & Gynecology
PROC: 10D00Z1 Extraction of Products of Conception, Low, Open Approach (ICD-10-PCS; CPT 59514; principal; 2023-11-27 19:00)
DX: O48.0 Post-term pregnancy (principal); O41.1230 Chorioamnionitis, third trimester, not applicable or unspecified; D62 Acute posthemorrhagic anemia; O14.04 Mild to moderate pre-eclampsia, complicating childbirth; O76 Abnormality in fetal heart rate and rhythm complicating labor and delivery; G89.18 Other acute postprocedural pain; O26.893 Other specified pregnancy related conditions, third trimester; Z67.91 Unspecified blood type, Rh negative; O99.02 Anemia complicating childbirth; D50.9 Iron deficiency anemia, unspecified; J45.909 Unspecified asthma, uncomplicated; O89.4 Spinal and epidural anesthesia-induced headache during the puerperium; O35.EXX0 Maternal care for other (suspected) fetal abnormality and damage, fetal genitourinary anomalies, not applicable or unspecified; Z37.0 Single live birth; Z3A.41 41 weeks gestation of pregnancy
CPT/HCPCS: 01967; 01968; 36415; 59200; 64488; 76942; 82565; 82570; 84156; 84450; 84460; 84520; 85025; 85027; 86592; 86850; 86900; 86901; 87070; 87075; 87077; 87205; 88307; 99140; A9270; C1726; C9290; J0290; J0456; J0665; J0736; J1100; J1200; J1580; J1885; J2270; J2274; J2371; J2405; J2590; J2795; J3010; J7050; J7120

== ENCOUNTER 2023-12-01 04:04 | Emergency (ER) | payer OTHER, SELFPAY ==
[2023-12-01] VITALS (16 sets, daily range): BP systolic 116–141; BP diastolic 70–98; PULSE 57–69; RESP 16; TEMP 36.9; O2SAT 95–100; BMI 31.9
--- NOTE | 2023-12-01 04:30 | ED_ITS ---
HPI - General Adult General Chief complaint: Post OB/Post- Complication Stated complaint: post /high blood pressure Time Seen by Provider: 12/01/23 04:21 Source: patient and family Mode of arrival: ambulatory Limitations: no limitations History of Present Illness HPI narrative: 33-year-old female 4 days from primary presents to the emergency department with elevated blood pressures, headache and nausea. Blood pressure is elevated at home to a max of 160 over 90s. Was discharged from the hospital less than 24 hours ago. Induction of labor, postdates. Discharge sum karen reviewed. Blood pressures ranged from 1 teens to 140s systolic while inpatient. Labs reviewed. Delivery was complicated only by spinal headache. Seem to have evidence of chorioamnionitis and was diagnosed with preeclampsia upon admission. Denies history of coagulopathy, seizures or cardiac conditions. Denies use of any prescription medications besides those recently prescribed . Denies long-term health problems. Has been using ibuprofen 600 mg every 6 hours, last dose was about an hour prior to presentation for her spinal headache and did take 5 of oxycodone a couple of hours before that. Still has a headache. Vomiting started this evening. Has been making urine. Past medical history most notable for recent , no major long-term health problems. Current medications ibuprofen, oxycodone, docusate. Recent discharge and up no reviewed. ROS notable for the generalized, obstetrical and neuro complaints as above, otherwise denies times 12 systems. 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 - Other specified disorders of kidney and ureter (ICD-10) Missed ?O02.1 - Missed (ICD-10) Twin gestation in first trimester ?O30.001 - Twin , unspecified number of placenta and unspecified number of amniotic sacs, first trimester (ICD-10) Surgical History H/O wisdom tooth extraction ?K08.409 - Partial loss of teeth, unspecified cause, unspecified class (ICD- 10) Family History Family/Other Colon cancer Social History What is your current living situation?: I presently have a place to live Problems where you live: no known problems In the past 12 months, utilities in danger of being shut off: no In past 12 months, lack of transportation kept you from medical appts, meetings, work, or getting things needed for daily living: no In the past 12 mos, have been you worried that your food would run out before you had money to buy more?: never true In the past 12 mos, the food you bought just didn't last and you didn't have money to buy more?: never true Smoking Status: Never smoker How often do you have a drink containing alcohol: never AUDIT-C Alcohol total score: 0 Non-prescribed substance use: denies use How often does anyone, including family, friends and others, physically hurt you : never How often does anyone, including family, friends and others, insult or talk down to you: never How often does anyone, including family, friends and others, threaten you with harm: never How often does anyone, including family, friends and others, scream or curse at you: never Little interest or pleasure in doing things: not at all Feeling down, depressed, or hopeless: not at all Exam Const: Vital Signs, click to edit/add: Vital Signs - 24 hr 12/01/23 04:14 12/01/23 04:31 12/01/23 04:50 Temperature 98.4 F Pulse Rate 58 L Pulse Rate [Pulse Oximeter] 69 Respiratory Rate 16 16 Blood Pressure 141/78 H 128/88 Blood Pressure [Ri ght Upper Arm] 132/98 H Pulse Oximetry 100 100 Oxygen Delivery Me thod Room Air 12/01/23 04:51 12/01/23 05:00 12/01/23 05:01 Temperature Pulse Rate 61 60 63 Pulse Rate [Pulse Oximeter] Respiratory Rate 16 Blood Pressure 124/81 Blood Pressure [Ri ght Upper Arm] Pulse Oximetry 98 99 100 Oxygen Delivery Me thod 12/01/23 05:15 12/01/23 05:31 12/01/23 06:00 Temperature Pulse Rate 59 L 67 65 Pulse Rate [Pulse Oximeter] Respiratory Rate 16 Blood Pressure 116/70 Blood Pressure [Ri ght Upper Arm] Pulse Oximetry 95 95 99 Oxygen Delivery Me thod 12/01/23 06:01 12/01/23 06:02 12/01/23 06:22 Temperature Pulse Rate 67 65 58 L Pulse Rate [Pulse Oximeter] Respiratory Rate 16 Blood Pressure 128/79 Blood Pressure [Ri ght Upper Arm] Pulse Oximetry 98 99 100 Oxygen Delivery Me thod 12/01/23 06:23 12/01/23 06:30 12/01/23 06:31 Temperature Pulse Rate 61 57 L 65 Pulse Rate [Pulse Oximeter] Respiratory Rate 16 Blood Pressure 132/77 124/77 Blood Pressure [Ri ght Upper Arm] Pulse Oximetry 97 100 99 Oxygen Delivery Me thod 12/01/23 06:45 Temperature Pulse Rate 58 L Pulse Rate [Pulse Oximeter] Respiratory Rate Blood Pressure Blood Pressure [Ri ght Upper Arm] Pulse Oximetry 97 Oxygen Delivery Me thod Documenting provider has reviewed patient's vital signs: yes Common normals: no apparent distress and alert General appearance: cooperative and well kempt Orientation/consciousness: Yes awake HENMT: Common normals: normocephalic Head and scalp: normocephalic Face and sinus: normal facial exam Throat: posterior oropharynx normal Eye: Common normals: conjunctivae normal General eye: normal appearance of both eyes Conjunctiva: conjunctiva(e) normal Neck & C-Spine: Common normals: full ROM and no lymphadenopathy Resp: Common normals: normal respiratory effort, no use of accessory muscles and clear to auscultation bilaterally Effort & inspection: able to speak in complete sentences Auscultation: clear to auscultation bilaterally Cardio: Common normals: regular rate, regular rhythm, S1 normal heart sound, S2 normal heart sound and no murmurs Rate: regular rate Rhythm: regular rhythm Heart sounds: S1 normal and S2 normal GI: Other: Surgical bandage overlying recent incision, no surrounding redness. No seepage on the surgical dressing. Fundus is firm, 2 cm below umbilicus. Bowel sounds are normoactive. Abdomen is really not tender. Back & Pelvis: Common normals: thoracic and lumbar spine normal to inspection Extremity: Common normals: normal to inspection Other: Trace bilateral edema, equal and symmetric. Neuro: Sensorium/orientation: awake and alert Speech: speech normal Motor exam: strength 5/5 throughout and no movement abnormalities noted Other: No clonus. Psych: Appearance: well kempt Attitude: engaged Mood and affect: euthymic mood Insight: insight good Judgement: judgment good Skin: Common normals: no rashes or lesions noted General skin exam: no rashes or lesions noted Course Course ED Course: 33-year-old from 1st delivery with primary and diagnosis of preeclampsia. No experiencing headache, nausea and more elevated blood pressures to 160 systolic at home. Advised to be seen by a obstetrical provider. Will obtain typical preeclampsia labs, blood pressure is elevated here today. Will give IV Tylenol and Zofran for nausea while we await labs then will consult Ob provider on their recommendations for management. Reevaluation(s) Time of Reevaluation #1: 05:15 Reevaluation #1: Spoke with Dr. Turner, labs not suggestive of severe preeclampsia. Blood pressure has improved to 120 systolic. Patient is feeling better when she lies down flat which is of course typical for a spinal headache. She is uncertain of the Zofran and Tylenol have helped. I think she would benefit tremendously from a blood patch. Will call Anesthesia. Dr. Turner is not recommending admission at this time I would like patient to follow-up in the office in 2 days no blood pressures are still persistently elevated will consider pharmaceutical therapy and or other management. Time of Reevaluation #2: 07:19 Reevaluation #2: Blood patch performed and patient reporting feeling better, will be discharged. Vital signs have normalized. See discharge instructions. Vital Signs Vital signs: Initial Vital Signs Temperature 98.4 F 12/01/23 04:14 Temperature Source Temporal Artery Scan 12/01/23 04:14 Pulse Rate 69 12/01/23 04:14 Respiratory Rate 16 12/01/23 04:14 Blood Pressure 132/98 H 12/01/23 04:14 Blood Pressure Mean 109 H 12/01/23 04:14 Blood Pressure Position Sitting 12/01/23 04:14 Pulse Oximetry 100 12/01/23 04:14 Oxygen Delivery Method Room Air 12/01/23 04:14 Vital Signs Temperature 98.4 F 12/01/23 04:14 Pulse Rate 69 12/01/23 04:14 Respiratory Rate 16 12/01/23 04:14 Blood Pressure 132/98 H 12/01/23 04:14 Pulse Oximetry 100 12/01/23 04:14 Oxygen Delivery Method Room Air 12/01/23 04:14 Temperature 98.4 F 12/01/23 04:14 Pulse Rate 58 L 12/01/23 06:45 Respiratory Rate 16 12/01/23 06:31 Blood Pressure 124/77 12/01/23 06:31 Pulse Oximetry 97 12/01/23 06:45 Oxygen Delivery Method Room Air 12/01/23 04:14 Medications Administered Medications: Discontinued Medications Generic Name Dose Route Start Last Admin Trade Name Tyroneq PRN Reason Stop Dose Admin Acetaminophen 1,000 mg in 100 mls @ 400 mls/hr 12/01/23 04:28 12/01/23 04:55 Ofirmev IVPB 12/01/23 04:42 Infused ONCE ONE Infusion Ondansetron HCl 4 mg 12/01/23 04:28 12/01/23 04:35 Ondansetron 2 Mg/Ml Inj IVP 12/01/23 04:29 4 mg ONCE ONE Administration Medical Decision Making Lab Data Lab results reviewed: Yes I reviewed the patient's lab results Lab results narrative: Reassuring labs Labs: Lab Results 12/01/23 12/01/23 Range/Units 04:30 04:35 WBC 8.87 (4.50-11.00) K/uL RBC 3.87 L (4.00-5.20) m/uL Hgb 10.4 L (12.0-16.0) gm/dL Hct 33.0 (33.0-51.0) % MCV 85 (80-100) fL MCH 27 (26-34) pg MCHC 32 (32-36) gm/dL RDW Coeff of Thomas 15.0 (11.5-15.5) % Plt Count 298 (140-440) K/uL Neut % (Auto) 77.7 H (42.0-72.0) % Lymph % (Auto) 15.2 L (20-44) % [place] % (Auto) 3.8 (0.0-11.0) % Eos % (Auto) 2.0 (0.0-7.0) % Baso % (Auto) 0.2 (0.0-3.0) % Neut # (Auto) 6.90 (1.7-7.0) K/uL Lymph # (Auto) 1.30 (0.90-2.90) K/uL [place] # (Auto) 0.30 (0.00-0.90) K/UL Eos # (Auto) 0.18 (0.00-0.50) K/uL Baso # (Auto) 0.02 (0.00-0.30) K/uL Abs Immat Gran (auto) 0.10 (0.00-0.30) K/uL Imm/Tot Granulo (auto) 1.1 % INR 0.87 L (0.91-1.10) Sodium 138 (135-149) mmol/L Potassium 4.1 (3.6-5.1) mmol/L Chloride 110 (96-114) mmol/L Carbon Dioxide 20 (20-32) mmol/L Anion Gap 8 (7-15) mEq/L BUN 10 (5-24) mg/dL Creatinine 0.6 (0.5-1.5) mg/dL Estimated Creat Clear 133.27 Estimated GFR 121 ml/min Glucose 101 (60-115) mg/dL Uric Acid 5.3 (2.2-8.4) mg/dL Calcium 8.8 (8.4-10.6) mg/dL Magnesium 2.0 (1.5-2.6) mg/dL Total Bilirubin 0.3 (0.1-1.5) mg/dL AST 53 H (12-35) U/L ALT 45 H (4-35) U/L Alkaline Phosphatase 181 H (40-150) U/L Total Protein 6.5 (6.0-8.3) g/dL Albumin 3.4 (3.3-5.0) g/dL Urine Color Yellow (Yellow) Urine Appearance Clear (Clear) Urine pH 7.5 (5.0-8.5) Ur Specific [place] 1.015 (1.000-1.030) Urine Protein Negative (Negative) Urine Glucose (UA) Negative (Negative) Urine Ketones Negative (Negative) Urine Blood 2+ A (Negative) Urine Nitrite Negative (Negative) Urine Bilirubin Negative (Negative) Urine Urobilinogen 0.2 (0.2-1.0) Ur Leukocyte Esterase Negative (Negative) Urine RBC 2-5 A (0-2) Urine WBC 0-2 (0-5) Ur Squamous Epith Cells None (None-Few) Urine Bacteria None (None) ECG Data Attestation: I personally reviewed and interpreted this ECG as follows: Prior ECG tracings: not available for review Interpretation: Mild sinus bradycardia at 56. Normal axis and intervals. No significant ST or T-wave abnormalities, normal EKG. Discharge Plan Discharge Clinical Impression: Spinal headache, Preeclampsia Instructions: Epidural Blood Patch (DC) Additional Instructions: As we discussed, your labs look very good. There are no features of severe preeclampsia at this time. He certainly do need to keep monitoring your blood pressure twice daily, preferably checking after at least 10 minutes of rest while lying flat or sitting. Continue taking ibuprofen 600 mg every 6 hours for pain, Tylenol 1000 mg every 6 hours and of course the oxycodone if it is needed. I am hopeful that the blood patch will be very successful in treating your headache and nausea. Dr. Turner would like to see you in the clinic in a couple of days to recheck your blood pressure and see how things are going. If you do not already have an appointment for this, please call once the office opens. Remember to continue lying flat for the next few hours as much as possible to allow the blood patch to set up properly. Please call the OB team if you have persistent problems. Activity Level: Activity as Tolerated Discharge Diet: Regular Prescriptions: No Action docusate sodium 100 mg Capsule 100 mg PO DAILY Qty: 90 0RF Rx Instructions: Take 1-2t ablets daily as needed for constipation. ibuprofen 600 mg Tablet 600 mg PO Q6H PRN (Reason: Pain) Qty: 90 0RF oxycodone 5 mg Tablet 5 - 10 mg PO Q4H PRN (Reason: Pain) Qty: 14 0RF Follow Up/Referrals: Provider,Not a Local [Primary Care Provider] -
[2023-12-01] MEDS: ONDANSETRON 2 MG/ML inj 4 MG IVP (04:35)
[2023-12-01] MEDS: ACETAMINOPHEN INJ 1,000 MG/100 ML VIAL 400 MG IVPB (04:40)
[2023-12-01 04:47] LABS: Basophils Absolute Auto 0.02 K/uL (0.00-0.30); Basophils Percent Auto 0.2 % (0.0-3.0); Eosinophils Absolute Auto 0.18 K/uL (0.00-0.50); Hemoglobin* 10.4 gm/dL (12.0-16.0); Immature Granulocytes Pct Auto 1.1 %; Lymphocytes Percent Auto 15.2 % (20-44); Mean Corpuscular HGB Conc 32 gm/dL (32-36); Mean Corpuscular Hemoglobin 27 pg (26-34); Mean Corpuscular Volume 85 fL (80-100); Monocytes Percent Auto 3.8 % (0.0-11.0); Neutrophils Percent Auto 77.7 % (42.0-72.0); Platelet Count* 298 K/uL (140-440); Red Blood Count 3.87 m/uL (4.00-5.20); Slide Review Reflex No; White Blood Count* 8.87 K/uL (4.50-11.00)
[2023-12-01 04:52] LABS: Appearance Urine Clear (Clear); Bilirubin Urine Negative (Negative); Blood Urine 2+ (Negative); Color Urine Yellow (Yellow); Glucose Urine Negative (Negative); Ketones Urine Negative (Negative); Leukocyte Esterase Urine Negative (Negative); Nitrite Urine Negative (Negative); Protein Urine Negative (Negative); Specific Gravity Urine 1.015 (1.000-1.030); Urobilinogen Urine 0.2 (0.2-1.0); pH Urine 7.5 (5.0-8.5)
[2023-12-01 04:56] LABS: Albumin* 3.4 g/dL (3.3-5.0); Chloride* 110 mmol/L (96-114)
[2023-12-01 04:57] LABS: Potassium* 4.1 mmol/L (3.6-5.1); Sodium* 138 mmol/L (135-149)
[2023-12-01 04:58] LABS: WBC Urine 0-2 (0-5)
[2023-12-01 04:59] LABS: Alanine Aminotransferase* 45 U/L (4-35); Alkaline Phosphatase* 181 U/L (40-150); Anion Gap 8 mEq/L (7-15); Aspartate Amino Transferase* 53 U/L (12-35); Bilirubin Total* 0.3 mg/dL (0.1-1.5); Blood Urea Nitrogen* 10 mg/dL (5-24); Carbon Dioxide* 20 mmol/L (20-32); Creatinine* 0.6 mg/dL (0.5-1.5); Est. Creatinine Clearance* 133.27; Estimated Glomerular Filt Rate 121 ml/min; Glucose* 101 mg/dL (60-115); INR 0.87 (0.91-1.10); Prothrombin Time 12.3 Seconds; Total Protein* 6.5 g/dL (6.0-8.3)
[2023-12-01 05:00] LABS: Calcium* 8.8 mg/dL (8.4-10.6); Uric Acid* 5.3 mg/dL (2.2-8.4)
--- NOTE | 2023-12-01 06:27 | P.ANBPRC_ITS ---
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 - Other specified disorders of kidney and ureter (ICD-10) Missed ?O02.1 - Missed (ICD-10) Twin gestation in first trimester ?O30.001 - Twin , unspecified number of placenta and unspecified number of amniotic sacs, first trimester (ICD-10) Surgical History H/O wisdom tooth extraction ?K08.409 - Partial loss of teeth, unspecified cause, unspecified class (ICD- 10) Family History Family/Other Colon cancer Social History What is your current living situation?: I presently have a place to live Problems where you live: no known problems In the past 12 months, utilities in danger of being shut off: no In past 12 months, lack of transportation kept you from medical appts, meetings, work, or getting things needed for daily living: no In the past 12 mos, have been you worried that your food would run out before you had money to buy more?: never true In the past 12 mos, the food you bought just didn't last and you didn't have money to buy more?: never true Smoking Status: Never smoker How often do you have a drink containing alcohol: never AUDIT-C Alcohol total score: 0 Non-prescribed substance use: denies use How often does anyone, including family, friends and others, physically hurt you : never How often does anyone, including family, friends and others, insult or talk down to you: never How often does anyone, including family, friends and others, threaten you with harm: never How often does anyone, including family, friends and others, scream or curse at you: never Little interest or pleasure in doing things: not at all Feeling down, depressed, or hopeless: not at all Meds Home Medications and Allergies Allergies Allergy/AdvReac Type Severity Reaction Status Date / Time No Known Drug Allergies Allergy Verified 11/26/23 16:02 Results Labs Labs: Laboratory Results - last 24 hr 12/01/23 12/01/23 04:30 04:35 WBC 8.87 RBC 3.87 L Hgb 10.4 L Hct 33.0 MCV 85 MCH 27 MCHC 32 RDW Coeff of Thomas 15.0 Plt Count 298 Neut % (Auto) 77.7 H Lymph % (Auto) 15.2 L [place] % (Auto) 3.8 Eos % (Auto) 2.0 Baso % (Auto) 0.2 Neut # (Auto) 6.90 Lymph # (Auto) 1.30 [place] # (Auto) 0.30 Eos # (Auto) 0.18 Baso # (Auto) 0.02 Abs Immat Gran (auto) 0.10 Imm/Tot Granulo (auto) 1.1 INR 0.87 L Sodium 138 Potassium 4.1 Chloride 110 Carbon Dioxide 20 Anion Gap 8 BUN 10 Creatinine 0.6 Estimated Creat Clear 133.27 Estimated GFR 121 Glucose 101 Uric Acid 5.3 Calcium 8.8 Magnesium 2.0 Total Bilirubin 0.3 AST 53 H ALT 45 H Alkaline Phosphatase 181 H Total Protein 6.5 Albumin 3.4 Urine Color Yellow Urine Appearance Clear Urine pH 7.5 Ur Specific [place] 1.015 Urine Protein Negative Urine Glucose (UA) Negative Urine Ketones Negative Urine Blood 2+ A Urine Nitrite Negative Urine Bilirubin Negative Urine Urobilinogen 0.2 Ur Leukocyte Esterase Negative Urine RBC 2-5 A Urine WBC 0-2 Ur Squamous Epith Cells None Urine Bacteria None Vital Signs Vital Signs: Last Vital Signs Temp 98.4 F 12/01/23 04:14 Pulse 67 12/01/23 06:01 Resp 16 12/01/23 06:01 BP 128/79 12/01/23 06:01 Pulse Ox 98 12/01/23 06:01 O2 Del Method Room Air 12/01/23 04:14 Weight: 95.254 kg Height: 172.72 cm Anesthesia Procedures Epidural Blood Patch Patient Location: ED Start Time: 05:50 Stop Time: 06:15 Start Date: 12/01/23 Stop Date: 12/01/23 Reason for Blood Patch: spinal headache and CSF leak PAINTER HAND: Devin Shankar Preanesthetic Checklist: IV checked, risks and benefits discussed, surgical consent, monitors and equipment checked, pre-op evaluation, timeout performed and anesthesia consent Patient Symptoms: postural headache and photophobia Pain (1-10): 8 Pain duration: 4 days Pain Frequency: intermittent Quality of Pain: aching, pressure and throbbing Pain exacerbated by: cough/straining, standing and sitting Pain Made Worse: body movement Pain made better: darkness and position change Diagnosis of PDPH: Yes Volume of Blood Injected (mL): 20 Patient Position: sitting Prep: Chloraprep Monitoring: cont pulse oximetry and BP monitoring Approach: midline Location: L4-5 Injection Technique: CARRIE saline Injection Method: Touhy needle Needle Gauge Used: 17 Needle Length (cm): 10 cm Catheter Type: none
== END 2023-12-01 07:43 | disposition home or self-care (01) ==
PROVIDERS: Emergency Provider Family Medicine
DX: O14.95 Unspecified pre-eclampsia, complicating the puerperium (principal); O89.4 Spinal and epidural anesthesia-induced headache during the puerperium
CPT/HCPCS: 62273; 36415; 80053; 81001; 81003; 83735; 84550; 85025; 85610; 93005; 96374; 96375; 99283; 99284; J0131; J2405

== ENCOUNTER 2023-12-02 12:54 | Outpatient (CLI) | payer OTHER, SELFPAY | END 2023-12-02 12:55 | disposition home or self-care (01) | PROVIDERS: Visit Provider Obstetrics & Gynecology | DX: O14.95 Unspecified pre-eclampsia, complicating the puerperium (principal) | CPT/HCPCS: 82565; 84450; 84460 ==